=== PATIENT | female | born 1955 | race Two or more races ===

== ENCOUNTER 2022-05-18 09:56 | Inpatient (IN) | payer OTHER ==
[~2022-05-18] VITALS: Ht 152.4 cm; Wt 69.9 kg
[~2022-05-18 09:56] MED LIST: FOSAM PO; HUMULIN 70100 UNIT/2; INDUR PO; LIPITOR40 M1 PO; OMEPRAZO PO; PLAVIX PO; TOPROL XL100 M1 PO; VITAMIN D310 MCG/1 M PO
== END 2022-05-20 18:41 | disposition home or self-care (01) | DRG 522 ==
LOC: CIR.AMB 09:56 → SURH 12:15 → CIR.AMB 12:15 → EDSTATUS 12:15 → CIR.AMB 13:45 → SURH 15:52
PROVIDERS: ADMIT Orthopaedic Surgery; ATTEND Orthopaedic Surgery
PROC: 0QR40JZ Replacement of Right Acetabulum with Synthetic Substitute, Open Approach (ICD-10-PCS; 2022-05-18)
PROC: 0SRR01Z Replacement of Right Hip Joint, Femoral Surface with Metal Synthetic Substitute, Open Approach (ICD-10-PCS; principal; 2022-05-18 13:45)
DX: S72.091A Other fracture of head and neck of right femur, initial encounter for closed fracture (principal)